=== PATIENT | female | born 1995 | race Two or more races ===

== ENCOUNTER 2020-12-15 12:24 | Emergency (ER) | payer OTHER ==
[~2020-12-15] VITALS: Ht 170.2 cm; Wt 99.8 kg
--- NOTE | 2020-12-15 14:03 | NUR ---
pt arrived for L neck pain after injury at work saturday. pt states she was lifting boxes & now having neck pain on L side. pt states aching & radiating pain with certain movements. pt A&OX4, ambulatory, stable. pt refusing pain medication at this time. pt denies pmh.
--- NOTE | 2020-12-15 14:04 | Emergency Room Report ---
History of Present Illness General Chief Complaint: Pain Source: Patient Present Illness HPI Patient is a 25-year-old female presents for increased left-sided arm pain. Reports having injury while lifting boxes at work. Reports having increased pain to the left upper extremity over the bicep. States that she had been lifting higher numbers of boxes than usual at work. Reports having some neck discomfort. Denies any fever. Denies any recent cough. No other prior medical history. Patient is right-hand dominant. She works at a flower shop. States has been lifting objects approximately 10 to 20 pounds. Denies any recent trauma. Did not feel any popping sensation. 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 COVID-19 Screening: Negative COVID-19 COVID-19 Testing Source: [employer]UCATIONAL [employer] Patient History Last Menstrual Period: 12/04/20 Now: No Reviewed Nursing Documentation: PMH: Agreed; PSxH: Agreed Nursing Documentation-PMH Past Medical History: No Stated History Review of Systems All Other Systems: negative except mentioned in HPI Physical Exam Vital Signs Date Time Temp Pulse Resp B/P (MAP) Pulse Ox O2 Delivery O2 Flow Rate FiO2 12/15/20 12:28 98.2 74 16 115/70 (85) 96 Room Air General Appearance: well appearing, no apparent distress, alert, GCS 15 Head: normocephalic, atraumatic ENT: hearing grossly normal, normal voice Neck: full range of motion, supple Respiratory: chest non-tender, lungs clear, no respiratory distress, speaking full sentences Cardiovascular #1: normal inspection, regular rate, rhythm, no edema Gastrointestinal: normal inspection, soft Musculoskeletal: normal inspection, normal range of motion, tenderness - Tenderness over the left bicep on the medial aspect., No cervical spine tenderness to palpation, no tenderness to forearm to palpation, normal range of motion and strength, other Neurologic: alert, motor strength/tone normal, loading checker III-XII nml as tested, or iented x3, normal gait Psychiatric: mood/affect normal Skin: no rash Medical Decision Making Diagnostic Impression: Primary Impression: Biceps strain Additional Impression: Cervical strain ER Course Presents for left upper extremity pain. Differential diagnosis include was not limited to muscle strain, tendinitis, cervical radiculopathy, impingement syndrome among others. Patient has a benign exam and does not appear to require any laboratory testing at this time. X-ray imaging showed normal bony alignment without evident fracture. X-ray imaging of the cervical spine showed degenerative changes without evident acute malalignment there is straightening of the cervical curvature. Patient's symptoms and exam is consistent with a biceps strain. Does not appear to have any evidence of complete rupture at this time. Patient was advised to continue to rest the area and to be placed on light duty. She is advised to take ibuprofen and to follow-up with Worker's Comp. physician for recheck. Advised to return if worse.Patient was advised return precautions. Last Vital Signs Date Time Temp Pulse Resp B/P (MAP) Pulse Ox O2 Delivery O2 Flow Rate FiO2 12/15/20 12:28 98.2 74 16 115/70 (85) 96 Room Air Status: improved Disposition: HOME, SELF-CARE Condition: Stable Scripts Ibuprofen (Ibuprofen) 400 Mg Tablet 400 MG PO EVERY 8 HOURS for pain, #30 TAB Prov: Jeromy Celestin MD 12/15/20 Jeromy Celestin MD Dec 15, 2020 14:04
[2020-12-15] MEDS ORDERED: IBUPROFEN400 M1 PO (14:09)
--- NOTE | 2020-12-15 14:12 | Diagnostic Imaging Report ---
EXAM: X-RAY XRAY Humerus 2v L CLINICAL HISTORY: Arm pain. COMPARISON: None FINDINGS: Total of 2 views of the left humerus were obtained. Alignment is anatomic. There is no fracture, bony lesions or erosions. Joint spaces are unremarkable. Surrounding soft tissue is normal. IMPRESSION: NO ACUTE BONY ABNORMALITY.
--- NOTE | 2020-12-15 14:13 | Diagnostic Imaging Report ---
EXAM: X-RAY left shoulder CLINICAL HISTORY: Shoulder pain. COMPARISON: None FINDINGS: Total of 3 views of the left shoulder were obtained. Alignment is anatomic. There is no fracture, bony lesions or erosions. Joint spaces are unremarkable. Surrounding soft tissue is normal. IMPRESSION: NO ACUTE BONY ABNORMALITY
[2020-12-15 14:55] VITALS: BP 142/77
--- NOTE | 2020-12-15 14:55 | NUR ---
ED Nurse Note: pt given first physician paperwork & workers comp paper work. pt educated regarding arm sling & rest. pt refused medication for pain.
--- NOTE | 2020-12-15 14:57 | NUR ---
ED Nurse Note: Pt cleared by health care Provider for discharge. DC instructions/prescription was given and explained to pt and verbalized understanding of teachings. All medical deviecs such as ID band removed. Pt is AAO x4, ambulatory and left with all personal belongings.
--- NOTE | 2020-12-15 15:08 | Diagnostic Imaging Report ---
EXAM: X-RAY XRAY C Spine 2-3v CLINICAL HISTORY: Neck pain. COMPARISON: None FINDINGS: Total of 3 views of the cervical spine were obtained. There is straightening of the cervical spine likely due to spasm. Alignment otherwise anatomic. There is no fracture, bony lesions or erosions. Joint spaces are unremarkable. Surrounding soft tissue is normal. IMPRESSION: STRAIGHTENING OF THE CERVICAL SPINE WHICH MAY BE FROM SPASM. OTHERWISE NO ACUTE BONY ABNORMALITY.
== END 2020-12-15 14:58 | disposition home or self-care (01) ==
LOC: EMR 13:40
DX: S46.212A Strain of muscle, fascia and tendon of other parts of biceps, left arm, initial encounter (principal); S16.1XXA Strain of muscle, fascia and tendon at neck level, initial encounter; X50.0XXA Overexertion from strenuous movement or load, initial encounter; Y93.89 Activity, other specified; Y92.9 Unspecified place or not applicable
CPT/HCPCS: 72040; 81025; 99284